=== PATIENT | male | born 1945 | race Caucasian/White ===

== ENCOUNTER 2017-06-06 22:19 | Inpatient (IN) | payer MEDICARE, MEDICAID ==
[~2017-06-06] VITALS: Ht 193 cm; Wt 97.5 kg
--- NOTE | 2017-06-06 22:35 | NUR ---
PT AMBULATORY TO ER BED 8. PT BIB CG FROM [facility] FOR ABD PAIN AND INCREASED CONFUSION. PT PLACED ON SEED LABORATORY ASSISTANT. VSS/RESP EVEN UNLABORED/NAD NOTED/SKIN WARM AND DRY/DENIES N-V-D/AOX4. AWAITING MD ESTRADA.
[2017-06-06] MEDS ORDERED: LORAZEPAM INJ 2 MG/ML VIAL ONE (22:45)
--- NOTE | 2017-06-06 22:50 | NUR ---
18G IV TO L WRIST X 1 ATTEMPT USING ASEPTIC TECH, BLOOD HANDED OVER TO LAB AT THE BEDSIDE. IV FLUSHES EASILY WITH NS.
[2017-06-06] MEDS ORDERED: CLONIDINE HCL 0.1 MG TABLET PO ONE (23:00)
[2017-06-06] MEDS ORDERED: IV NS 0.9% 500 ML BAG IV ONE (23:00)
[2017-06-06] MEDS ORDERED: SERTRALINE HCL 25 MG TABLET PO SCH (23:00)
[2017-06-06] MEDS ORDERED: LORAZEPAM INJ 2 MG/ML VIAL IVP ONE (23:00)
[2017-06-06 23:04] LABS: BASOPHILS # (AUTO) 0.1 /CMM (0.0-0.2); BASOPHILS % (AUTO) 0.4 % (0.0-2.0); EOSINOPHILS # (AUTO) 0.3 /CMM (0.0-0.7); EOSINOPHILS % (AUTO) 2.1 % (0.0-6.0); HEMATOCRIT 41 % (39-51); HEMOGLOBIN 13.6 g/dL (13.5-17.5); LYMPHOCYTES # (AUTO) 0.9 /CMM (0.8-4.8); LYMPHOCYTES % (AUTO) 7.4 % (20.0-44.0); MEAN CORPUSCULAR HEMOGLOBIN 30 PG (26.0-33.0); MEAN CORPUSCULAR HGB CONC 33 g/dl (31.0-36.0); MEAN CORPUSCULAR VOLUME 91 fL (80-96); MONOCYTES # (AUTO) 0.9 /CMM (0.1-1.30); MONOCYTES % (AUTO) 7.6 % (2.0-12.0); NEUTROPHILS # (AUTO) 9.9 /CMM (1.8-8.9); NEUTROPHILS % (AUTO) 82.5 % (43.0-81.0); PLATELET COUNT (AUTO) 167 /CMM (150-450); RDW COEFFICIENT OF VARIATION 13.6 (11.5-15.0); RED BLOOD CELL COUNT(AUTO) 4.53 MIL/uL (4.5-6.0)
[2017-06-06] MEDS ORDERED: CLONIDINE HCL 0.1 MG TABLET ONE (23:04)
[2017-06-06] MEDS ORDERED: SERTRALINE HCL 25 MG TABLET ONE (23:19)
[2017-06-06 23:20] LABS: ALANINE AMINOTRANSFERASE 28 U/L (12-78); ALBUMIN 3.9 g/dL (3.4-5.0); ALKALINE PHOSPHATASE 86 U/L (46-116); ASPARTATE AMINOTRANSFERASE 33 U/L (15-37); BILIRUBIN,DIRECT 0.1 mg/dL (0.0-0.2); BILIRUBIN,TOTAL 0.5 mg/dL (0.2-1.0); CALCIUM, SERUM 8.3 mg/dL (8.5-10.1); CARBON DIOXIDE 33 mmol/L (21-32); CHLORIDE 100 mmol/L (98-107); CREATININE 0.7 mg/dL (0.6-1.3); GLUCOSE 150 mg/dL (74-106); POTASSIUM 3.2 mmol/L (3.5-5.1); SODIUM SERUM 140 mmol/L (136-145); TOTAL PROTEIN, SERUM 7.3 g/dL (6.4-8.2); UREA NITROGEN, BLOOD 14 mg/dL (7-18)
[2017-06-06 23:21] LABS: ACETAMINOPHEN 0 ug/ml (10-30); ALCOHOL, BLOOD < 3 mg/dL (0-0)
[2017-06-06] MEDS ORDERED: POTASSIUM CHLORIDE 20 MEQ TAB.PRT.SR PO ONE (23:59)
[2017-06-07] MEDS ORDERED: POTASSIUM CHLORIDE 20 MEQ TAB.PRT.SR PO ONE
--- NOTE | 2017-06-07 00:03 | NUR ---
MEDICATED PER MD ORDERS. PT RESTING QUIETLY. VSS.
--- NOTE | 2017-06-07 00:21 | NUR ---
CALLED ART FOR PSYCH EVAL.
--- NOTE | 2017-06-07 01:29 | NUR ---
PT AWAKE, SITTING UP IN BED. VSS/RESP EVEN UNLABORED.
--- NOTE | 2017-06-07 01:59 | NUR ---
haritha 215-b
--- NOTE | 2017-06-07 02:35 | NUR ---
REPORT GIVEN TO EDUARDO LIEBERMAN FOR VAUGHN.
--- NOTE | 2017-06-07 04:30 | NUR ---
NO CHANGES, AWAITNG BED. PT RESTING QUIETLY, VSS/RESP EVEN UNLABORED.
--- NOTE | 2017-06-07 06:23 | NUR ---
PT TRANSPORTED VIA STRETCHER TO [facility] BED 215-2 WITH EMT. BELÉNS.
[2017-06-07] MEDS ORDERED: TEMAZEPAM 7.5 MG CAPSULE PO PRN (07:00)
[2017-06-07] MEDS ORDERED: MAG HYDROX/AL HYDROX/SIMETH 30 ML UDC PO PRN (07:00)
[2017-06-07] MEDS ORDERED: MAGNESIUM HYDROXIDE 30 ML UDC PO PRN (07:00)
--- NOTE | 2017-06-07 07:30 | NUR ---
GPS/RN RECEIVED PT TO CONTINUE WITH ADMISSION. PT. ADMITTING ORDERS RECEIVED BY RUSH SEATER AND CARRIED OUT. NO SI OR HI NOTED NO ACUTE DISTRESS.VSS. MEDS RECKONER CALLED TO PUT THE MEDS IN.
[2017-06-07 08:00] VITALS: BP 137/80
[2017-06-07] MEDS: LORAZEPAM 0.5 MG TABLET PO PRN (09:18)
[2017-06-07] MEDS ORDERED: TRAZ-144 PO (09:52)
[2017-06-07] MEDS ORDERED: ISOS60TA4 PO (09:52)
[2017-06-07] MEDS ORDERED: ATOR20TA PO (09:52)
[2017-06-07] MEDS ORDERED: SERT100T PO (09:52)
[2017-06-07] MEDS ORDERED: METO100T14 PO (09:52)
[2017-06-07] MEDS ORDERED: DIVA250T PO (09:52)
[2017-06-07] MEDS ORDERED: ARIP5TAB10 PO (09:52)
[2017-06-07] MEDS ORDERED: CARB200T8 PO (09:52)
--- NOTE | 2017-06-07 10:00 | NUR ---
GPS/RN PT REFUSED FULL SKIN ASSESSMENT.
--- NOTE | 2017-06-07 10:30 | NUR ---
GPS/RN PT SEEN BY DR LYNCH WHO WILL RECONCILE THE MEDS
[2017-06-07 16:00] VITALS: BP 132/81
--- NOTE | 2017-06-07 17:55 | NUR ---
GPS/RN DR GRESHAM CONTRACTED WITH THE [employer]IND[employer] TO RECONCILE THE MEDS. IS WORKING ON IT. Addendum: 06/07/17 at 1829 by CHERRY GONZALEZ RN NOT CONTRACTED BUT CONTACTED
[2017-06-07 19:58] VITALS: BP 154/90
[2017-06-07] MEDS ORDERED: CARBAMAZEPINE 100 MG TAB.CHEW PO SCH (21:00)
[2017-06-07] MEDS: ARIPIPRAZOLE 5 MG TABLET PO SCH (21:33)
[2017-06-07] MEDS: SIMVASTATIN 40 MG TABLET PO SCH (21:33)
[2017-06-07] MEDS: METOPROLOL TARTRATE 50 MG TABLET PO SCH (21:35)
[2017-06-07] MEDS ORDERED: CARBAMAZEPINE 100 MG TAB.CHEW ONE (22:50)
[2017-06-08] MEDS: ACETAMINOPHEN 325 MG TABLET PO PRN ×2 (06:51→15:09)
[2017-06-08 07:26] LABS: BASOPHILS # (AUTO) 0.1 /CMM (0.0-0.2); BASOPHILS % (AUTO) 1.1 % (0.0-2.0); EOSINOPHILS # (AUTO) 0.6 /CMM (0.0-0.7); EOSINOPHILS % (AUTO) 8.5 % (0.0-6.0); HEMATOCRIT 40 % (39-51); HEMOGLOBIN 13.7 g/dL (13.5-17.5); LYMPHOCYTES # (AUTO) 1.2 /CMM (0.8-4.8); LYMPHOCYTES % (AUTO) 16.9 % (20.0-44.0); MEAN CORPUSCULAR HEMOGLOBIN 30 PG (26.0-33.0); MEAN CORPUSCULAR HGB CONC 34 g/dl (31.0-36.0); MEAN CORPUSCULAR VOLUME 89 fL (80-96); MONOCYTES # (AUTO) 0.7 /CMM (0.1-1.30); MONOCYTES % (AUTO) 10.4 % (2.0-12.0); NEUTROPHILS # (AUTO) 4.5 /CMM (1.8-8.9); NEUTROPHILS % (AUTO) 63.1 % (43.0-81.0); PLATELET COUNT (AUTO) 153 /CMM (150-450); RDW COEFFICIENT OF VARIATION 13.7 (11.5-15.0); WHITE BLOOD COUNT (AUTO) 7.1 K/uL (4.3-11.0)
[2017-06-08 08:00] VITALS: BP 152/76
[2017-06-08 08:08] LABS: THYROID STIMULATING HORMONE 2.308 uIU/mL (0.358-3.74)
[2017-06-08 08:09] LABS: CALCIUM, SERUM 8.1 mg/dL (8.5-10.1); CARBON DIOXIDE 26 mmol/L (21-32); CHLORIDE 104 mmol/L (98-107); GLUCOSE 94 mg/dL (74-106); POTASSIUM 3.6 mmol/L (3.5-5.1); SODIUM SERUM 141 mmol/L (136-145)
[2017-06-08 08:10] LABS: ALANINE AMINOTRANSFERASE 29 U/L (12-78); ALBUMIN 3.3 g/dL (3.4-5.0); ALKALINE PHOSPHATASE 75 U/L (46-116); ASPARTATE AMINOTRANSFERASE 27 U/L (15-37); BILIRUBIN,TOTAL 0.3 mg/dL (0.2-1.0); CREATININE 0.6 mg/dL (0.6-1.3); MAGNESIUM 1.7 mg/dL (1.8-2.4); PHOSPHORUS 2.8 mg/dL (2.5-4.9); TOTAL PROTEIN, SERUM 6.7 g/dL (6.4-8.2); UREA NITROGEN, BLOOD 11 mg/dL (7-18)
[2017-06-08] MEDS: ARIPIPRAZOLE 5 MG TABLET PO SCH ×2 (08:26→21:18)
[2017-06-08] MEDS: METOPROLOL TARTRATE 50 MG TABLET PO SCH ×2 (08:26→21:20)
[2017-06-08] MEDS: ISOSORBIDE MONONITRATE (30MG) 30 MG TAB.SR.24H PO SCH (08:27)
[2017-06-08] MEDS: CARBAMAZEPINE 200 MG TABLET PO SCH ×2 (09:41→21:19)
--- NOTE | 2017-06-08 09:44 | NUR ---
[id number]-[id number]: GAVE MILK OF MAGNESIA 30 ML DUE TO CONSTIPATION UPON PT REQUEST AND WILL CONTINUE TO MONITOR FOR EFFECTIVENESS OF MEDICATION.
[2017-06-08] MEDS ORDERED: CARBAMAZEPINE 200 MG TABLET PO SCH (10:00)
[2017-06-08] MEDS: LORAZEPAM 0.5 MG TABLET PO PRN (10:24)
--- NOTE | 2017-06-08 10:24 | NUR ---
QMF-VN-[id number]: GAVE ATIVAN 0.5 MG PO DUE TO SEVERE ANXIETY UPON PT REQUEST AND WILL CONTINUE TO MONITOR FOR EFFECTIVENESS OF MEDICATION
[2017-06-08] MEDS ORDERED: MAGNESIUM OXIDE 400 MG TABLET PO ONE (12:00)
--- NOTE | 2017-06-08 12:05 | NUR ---
YRN-SP-[id number]: GAVE MAG-OXIDE 800 MG PO DUE TO MAGNESIUM IS 1.7.
--- NOTE | 2017-06-08 15:09 | NUR ---
XBE-JQ-[id number]: GAVE TYLENOL 650 MG DUE TO 5/10 GENERALIZED PAIN UPON PT REQUEST AND WILL CONTINUE TO MONITOR FOR EFFECTIVENESS OF MEDICATION
[2017-06-08] MEDS ORDERED: LORAZEPAM 1 MG TABLET PO STA (15:29)
[2017-06-08] MEDS: LORAZEPAM 1 MG TABLET PO PRN ×3 (15:35→23:27)
--- NOTE | 2017-06-08 15:38 | NUR ---
NKT-QP-EZJSL: GAVE ATIVAN 1 MG PO DUE TO SEVERE ANXIETY UPON PT REQUEST AND WILL CONTINUE TO MONITOR FOR EFFECTIVENESS OF MEDICATION
[2017-06-08 16:15] VITALS: BP 152/75
--- NOTE | 2017-06-08 18:15 | NUR ---
VNB-PX-QUTUR: GAVE ATIVAN 1 MG PO DUE TO SEVERE ANXIETY UPON PT REQUEST AND WILL CONTINUE TO MONITOR FOR EFFECTIVENESS OF MEDICATION
[2017-06-08 19:59] VITALS: BP 160/90
[2017-06-08] MEDS: SIMVASTATIN 40 MG TABLET PO SCH (21:18)
[2017-06-09] MEDS ORDERED: IBUPROFEN 600 MG TABLET PO ONE (01:12)
[2017-06-09] MEDS: IBUPROFEN 600 MG TABLET PO PRN ×2 (01:15→11:08)
--- NOTE | 2017-06-09 01:20 | NUR ---
GPS RN: PATIENT'S BLOOD PRESSURE HAS BEEN TRENDING HIGH. 192/114, HR-60 AT THE MOMENT. PATIENT WAS GIVEN METOPROLOL 100MG AT 2120, SINCE BP WAS 180/79, HR-68. ATIVAN 1MG PO GIVEN @2327 BP DURING THIS TIME 177/98, HR-56. RELAYED THE WHOLE SITUATION TO DR. VALENCIA, WITH ORDERS TO GIVE LISINOPRIL 40 MG PO NOW, AND GIVEN IBUPROFEN 600MG PO PRN. ALL THESE TWO MEDICATIONS PULLED OUT BY RING MAKERNAYELI FROM [facility] AN OVERRIDE. WILL CONTINUE TO MONITOR PATIENT.
[2017-06-09] MEDS ORDERED: LISINOPRIL (20MG) 20 MG TABLET PO ONE (01:30)
[2017-06-09] MEDS: LORAZEPAM 1 MG TABLET PO PRN ×2 (05:04→09:46)
--- NOTE | 2017-06-09 05:24 | NUR ---
GPS RN: UPDATED DR. VALENCIA OF PATIENT'S BLOOD PRESSURE. LEFT ARM- 200/79, HR- 61 RIGHT ARM- 159/94, HR-56 LEFT ARM- 192/108, HR-54 DR. VALENCIA GAVE ORDERS FOR CLONIDINE 0.1MG Q4HRS FOR BP >160MMHG. ORDER NOTED AND CARRIED OUT. WILL CONTINUE TO MONITOR. WILL ENDORSE TO DAY SHIFT NURSE.
[2017-06-09] MEDS ORDERED: CLONIDINE HCL 0.1 MG TABLET ONE (05:28)
[2017-06-09] MEDS: CLONIDINE HCL 0.1 MG TABLET PO PRN ×2 (05:33→13:59)
[2017-06-09 08:00] VITALS: BP 156/90
[2017-06-09] MEDS: ARIPIPRAZOLE 5 MG TABLET PO SCH (08:06)
[2017-06-09] MEDS: ISOSORBIDE MONONITRATE (30MG) 30 MG TAB.SR.24H PO SCH (08:07)
[2017-06-09] MEDS: CARBAMAZEPINE 200 MG TABLET PO SCH (08:08)
[2017-06-09] MEDS: METOPROLOL TARTRATE 50 MG TABLET PO SCH (08:08)
--- NOTE | 2017-06-09 09:46 | NUR ---
[id number]-ZF-[id number]: GAVE ATIVAN 1 MG PO DUE TO SEVERE ANXIETY UPON PT REQUEST AND WILL CONTINUE TO MONITOR FOR EFFECTIVENESS OF MEDICATION
[2017-06-09 09:59] LABS: CALCIUM, SERUM 8.3 mg/dL (8.5-10.1); CARBON DIOXIDE 27 mmol/L (21-32); CHLORIDE 106 mmol/L (98-107); CREATININE 0.7 mg/dL (0.6-1.3); GLUCOSE 117 mg/dL (74-106); MAGNESIUM 1.8 mg/dL (1.8-2.4); POTASSIUM 3.7 mmol/L (3.5-5.1); SODIUM SERUM 142 mmol/L (136-145); UREA NITROGEN, BLOOD 17 mg/dL (7-18)
--- NOTE | 2017-06-09 11:08 | NUR ---
OQP-HH-YCRQG: GAVE MOTRIN 600 MG PO DUE TO GENERALIZED PAIN UPON PT REQUEST AND WILL CONTINUE TO MONITOR FOR EFFECTIVENESS OF MEDICATION
--- NOTE | 2017-06-09 11:33 | NUR ---
Initial Discharge Note: It is noted in patient's chart that he came from a "facility." Patient states that it was a board and care, but does not have any information on it. There is no information listed in patient's charts or notes. Patient informed SW that his previous facility was trying to provide placement at [facility]. Patient provided SW with business care. SW to follow up and facilitate safe and proper discharge.
--- NOTE | 2017-06-09 11:34 | NUR ---
Discharge Planning: CARLY contacted [address] [place] [address], / fax#[phone]. CARLY was redirected to Vandana luna at [phone]. Vandana stated that patient has been assessed yesterday evening by her and that he was accepted into the facility. Vandana asked that CARLY fax an inquiry for patient to the above fax number. CARLY stated that she will do so and asked Vandana for information about patient's previous place of residence. Vandana stated that she was not in her office, but that she will call CARLY with that information once she is able to do so. SW to fax facility and to follow up.
--- NOTE | 2017-06-09 11:39 | NUR ---
Discharge Planning: CARLY faxed inquiry to [address] [place] [address], / fax#[phone]
--- NOTE | 2017-06-09 11:47 | NUR ---
WHR-PY-[id number]: GAVE MAALOX 30 ML PO DUE TO INDIGESTION UPON PT REQUEST AND WILL CONTINUE TO MONITOR FOR EFFECTIVENESS OF MEDICATION
[2017-06-09 13:59] VITALS: BP 171/86
--- NOTE | 2017-06-09 13:59 | NUR ---
GGZ-ZM-[id number]: NOTIFIED DR. ALEJANDRA ABOUT INCREASED BLOOD PRESSURE OF 171/86 AND PULSE IS 85 AND GAVE CATAPRESS 0.1 MG PO AND WILL CONTINUE TO MONITOR FOR EFFECTIVENESS OF MEDICATION. DR. ALEJANDRA WILL REVIEW BLOOD PRESSURE MEDICATIONS TO ADJUST BLOOD PRESSURE MEDICATIONS. Addendum: 06/09/17 at 1503 by PURVI ALVARES RN PT ALSO COMPLAINED OF CHEST PAIN AND NOTIFIED DR. ALEJANDRA. PT IS ALERT AND ORIENTED X3.
[2017-06-09] MEDS ORDERED: ASPIRIN 325 MG TABLET PO STA (14:35)
[2017-06-09] MEDS ORDERED: AMLO5TAB2 PO (14:43)
[2017-06-09] MEDS ORDERED: ASPI-1169 PO (14:43)
[2017-06-09] MEDS ORDERED: CARB200T39 PO (14:49)
[2017-06-09] MEDS ORDERED: ARIP5TAB10 PO (14:49)
--- NOTE | 2017-06-09 14:51 | NUR ---
BSL-YT-WYZGT: BLOOD PRESSURE IS 153/104 AND PULSE IS [address] ALEJANDRA ABOUT NEW BLOOD PRESSURE READINGS AND NOTIFIED [facility] TO TRANSFER PT TO MEDICAL SURGICAL FLOOR PER DR. ALEJANDRA ORDER. [facility] UNABLE TO PROVIDE BED IN SURGICAL MEDICAL FLOOR DUE TO NOT HAVING AVAILABLE SITTER AT THIS TIME. MONITOR PT.
[2017-06-09 14:55] VITALS: BP 153/104
--- NOTE | 2017-06-09 15:13 | NUR ---
VRP-XI-ATAZY: NOTIFIED DR. ALEJANDRA ABOUT EKG RESULTS: SINUS RHYTHM= NORMAL P AXIS, V-RATE 50-99, ABNORMAL R-WAVE PROGRESSION, EARLY TRANSITION= QRS AREA > 0 IN V2. AND BLOOD PRESSURE IS 108/106. DR. ESPARZA WANTS TO CONTIUE TO MONITOR PT.
[2017-06-09] MEDS ORDERED: OLANZAPINE 10 MG TABLET PO STA (15:23)
[2017-06-09] MEDS ORDERED: LORAZEPAM 1 MG TABLET PO STA (15:24)
--- NOTE | 2017-06-09 15:29 | NUR ---
TCZ-PJ-ADPOE: PT IS ANXIOUS, RESTLESS, UNPREDICTABLE, EASILY IRRITABLE, NON-COMPLAINT WITH STAFF. DR. SEGURA WAS IN UNIT AND ORDERED ZYPREXA 10 MG PO AND ATIVAN 2 MG IM AND WILL CONTINUE TO MONITOR FOR EFFECTIVENESS OF MEDICATION
[2017-06-09 16:00] VITALS: BP 168/106
--- NOTE | 2017-06-09 16:35 | NUR ---
CGG-BX-[id number]: NOTIFIED TO PHARMACY THAT WASTE RECORD ON [facility] MEDICATION MACHINE IS STATING 4 MG OF ATIVAN TO BE WASTED WHEN ASSOCIATE PROFESSOR ONLY TOOK ONE MG OF ATIVAN. PLACED NOT INACCURATE NUMBER OF MG OF ATIVAN.
--- NOTE | 2017-06-09 17:40 | NUR ---
[id number]-AQ-[id number]: PT IS 71 YEARS OLD MALE DISCHARGE TO MEDICAL SURGICAL FLOOR DUE TO INCREASED BLOOD PRESSURE. PT IS COMPLAINT WITH MEDICATIONS AND TREATMENTS. PT DENIES SI/HI/AVH. PT REFUSED TO SIGN DISCHARGE PAPERWORK. PT REFUSED SKIN ASSESSMENT. RECONCILED WITH DR. ALEJANDRA. AND DR. SEGURA. RETURNED AND DOCUMENTED. ESCORTED PT TO THE MEDICAL SURGICAL FLOOR. EXPLAINED DISCHARGE PAPERWORK TO PT AND PT VERBALIZED UNDERSTANDING EVIDENCED BY STATING, "I UNDERSTAND."
[2017-06-09] MEDS ORDERED: OLANZAPINE 5 MG/TAB.RAPDIS PO SCH (21:00)
[2017-06-10] MEDS ORDERED: AMLODIPINE BESYLATE 5 MG TABLET PO SCH (09:00)
== END 2017-06-09 17:40 | DRG 885 ==
LOC: ER 22:26 → GPS 06-07 02:37
PROVIDERS: ADMIT Psychiatry & Neurology Psychiatry; ATTEND Psychiatry & Neurology Psychiatry
DX: F25.0 Schizoaffective disorder, bipolar type (principal); F03.91 Unspecified dementia, unspecified severity, with behavioral disturbance; E86.0 Dehydration; D72.829 Elevated white blood cell count, unspecified; E78.5 Hyperlipidemia, unspecified; F41.9 Anxiety disorder, unspecified; E87.6 Hypokalemia; Z79.899 Other long term (current) drug therapy; Z79.82 Long term (current) use of aspirin; F43.9 Reaction to severe stress, unspecified; I10 Essential (primary) hypertension; F29 Unspecified psychosis not due to a substance or known physiological condition; R73.9 Hyperglycemia, unspecified; R10.9 Unspecified abdominal pain; R07.9 Chest pain, unspecified; K59.00 Constipation, unspecified
CPT/HCPCS: 36415; 71045-TC; 74022-TC; 80048-TC; 80053-TC; 80061-TC; 80076-TC; 80156-TC; 82140-TC; 83735-TC; 84100-TC; 84443-TC; 85025-TC; 87081-TC; A4606; G0480; J2060; J7040; Z7610

== ENCOUNTER 2017-06-09 17:40 | Inpatient (IN) | payer MEDICARE, MEDICAID ==
[~2017-06-09] VITALS: Ht 193 cm; Wt 95.8 kg
[~2017-06-09 17:40] MED LIST: AMLO5TAB2 PO; ARIP5TAB10 PO; ASPI-1169 PO; ATOR20TA PO; CARB200T39 PO; CARB200T8 PO; DIVA250T PO; ISOS60TA4 PO; METO100T14 PO; SERT100T PO; TRAZ-144 PO
--- NOTE | 2017-06-09 18:25 | NUR ---
RN NOTES PT WAS BROUGHT UP FROM GPS. PT IS ALERT AND ORIENTED X 2-3. VITAL SIGNS ARE 159/89, P 69, R 18, O2 94%, T 98.0. IV INSERTED INTO LFA #22, SL. TELE MONITOR PLACED ON PT, SINUS KARLA 58. PT WAS GIVEN DINNER. PT REFUSING SKIN ASSESSMENT. SAFETY MEASURES ARE IN PLACE, CALL LIGHT IS IN REACH AND SITTER IS IN THE ROOM. WILL ENDORSE TO EXTENSION COURSE COUNSELOR RN FOR CONTINUITY OF CARE.
[2017-06-09 19:00] VITALS: BP 189/113
--- NOTE | 2017-06-09 19:15 | NUR ---
MS STEVAN INITIAL NOTES RECEIVED REPORT FROM AM NURSE HYACINTH. PT SEEN IN BED AWAKE AND ALERT BUT CALMED AND QUIET AT THIS TIME. NO SIGNS OF ANY AGITATION NOTED. DX OF CHEST PAIN, HYPERTENSION. PT BLOOD PRESSURE HIGH AT THIS TIS TIME BUT DENIES ANY CHEST PAIN. AND HE STATED HE'S HUNGRY . RE-ORIENTED WHERE HE AT AND HOW TO USED THE CALL LIGHT SYSTEM. SITTER AT THE BEDSIDE FOR SAFETY. TELE SR PER MONITOR. WILL CONTINUE MONITORING. CALL TALENT ASSOCIATE MD TO GET ADMISSION ORDERS AND BLOOD PRESSURE MEDICATION. WILL CONTINUE MONITORING.
--- NOTE | 2017-06-09 19:21 | NUR ---
CURING PRESS MAINTAINER/INITIAL NOTES CHECKED PT HE'S AWAKE AND ALERT CALMED AT THIS TIME WITH VITAL SINGS FF. BP 189/113. PULSE 84, RESP 18 O2 SAT 98 AND TEMP 98.2 DENIES ANY CHEST PAIN OR ANY DISCOMFORT. TELE SR 67 PER MONITOR. KEPT HIM SAFE AND COMFORTABLE AT ALL TIMES. PT STILL ON 14 DAY HOLD. SITTER AT THE BEDSIDE.
[2017-06-09] MEDS ORDERED: ONDANSETRON HCL/PF 4 MG/2 ML VIAL IVP PRN (20:00)
[2017-06-09] MEDS ORDERED: DIVALPROEX SODIUM 125 MG TABLET.DR PO SCH (20:00)
[2017-06-09] MEDS: hydrALAZINE HCL 50 MG TABLET PO PRN (20:12)
--- NOTE | 2017-06-09 20:12 | NUR ---
NET LEAD DEVELOPER./NOTES HYDRALAZINE 50MG PO GIVEN PRN ORDERED. DINNER ALSO SERVED. WILL CONTINUE TO MONITOR.
[2017-06-09] MEDS ORDERED: LORAZEPAM 1 MG TABLET PO PRN (20:30)
[2017-06-09] MEDS: METOPROLOL TARTRATE 50 MG TABLET PO SCH (21:12)
[2017-06-09] MEDS: ATORVASTATIN 10 MG TABLET PO SCH (21:12)
[2017-06-09] MEDS: ISOSORBIDE MONONITRATE 20 MG TABLET PO SCH (21:12)
[2017-06-09] MEDS: TEMAZEPAM 7.5 MG CAPSULE PO PRN (21:13)
[2017-06-09 21:15] VITALS: BP 149/83
--- NOTE | 2017-06-09 21:15 | NUR ---
PRESS CLEANER./NOTES RE-CHECKED BLOOD PRESSURE AFTER HYDRALAZINE GIVEN AND CAME OUT SBP 149/83 AND PULSE 78. SOME OF ROUTINE MEDS GIVEN AND RESTORIL ALSO GIVEN PER REQUESTED AND ORDERED. SAFETY PRECAUTION IMPLEMENTED AND OBSERVED. SITTER AT THE BEDSIDE FOR SAFETY. PT STATED "THANK YOU". WILL CONTINUE MONITORING.
--- NOTE | 2017-06-09 22:47 | NUR ---
Patient was combative while performing echo study at around 10pm. Was not able to take sufficient images as patient uncooperative.
[2017-06-09] MEDS: ACETAMINOPHEN 325 MG TABLET PO PRN (23:34)
--- NOTE | 2017-06-10 01:55 | NUR ---
MS ENVIRONMENTAL RESEARCH PROJECT MANAGER NOTES PT WOKE UP UPSET AND AGITATED ,COMPLAINING OF TERRIBLE HEADACHE. SPOKE TO HIM TO CALMED DOWN TOLD HIM THAT I ALREADY GIVEN HIS PAIN MEDS AND SLEEP MEDICATION . HE STARTED TALKING TO LOUD AND SAYING "ITS BETTER IN THE STREET I CAN GET ANY MEDICATION THAT I WANT. I SPOKE TO HIM THAT NEEDS TO CALL HIS DOCTOR BUT NEEDS TO TAKE HIS BLOOD PRESSURE AGAIN , HE REFUSED IT AND SAYING I ALWAYS HAVE HIGH BLOOD PRESSURE. NO SIGNS OF ANY ACUTE DISTRESS AND NO SIGNS OF ANY STROKE NOTED, ABLE TO AMBULATE ON STEADY GAIT.
[2017-06-10] MEDS ORDERED: MORPHINE SULFATE INJ 4 MG/ML DISP.SYRIN ONE ×2 (02:00→06:19)
[2017-06-10] MEDS ORDERED: MORPHINE SULFATE INJ 4 MG/ML DISP.SYRIN IV PRN ×2 (02:00)
--- NOTE | 2017-06-10 02:15 | NUR ---
MS STEVAN NOTES MORPHINE 2 MG GIVEN SHARRON IVP ORDERED. PT BACK TO BED FOR HIS SAFETY. SITTER AT THE BEDSIDE.
--- NOTE | 2017-06-10 03:28 | NUR ---
CASTING HOUSE LABORER/NOTES PT CAME OUT TO HIS ROOM AND STARTED TALKING TO LOUD AND SAYING "HE NEEDS MORE PAIN MEDS "IS NOT ENOUGH THE PAIN MED THAT WE GAVE IT AND HE ALSO SAYING THAT HE'S AN ADDICT HE NEEDS MORE STRONG PAIN MEDICATION LIKE OPIUM . TRYING TO TALKED TO HIM TO CALMED HIM DOWN AND SAYING I WILL CALL HIS MD AGAIN , BUT HE'S NOT LISTENING AND SAYING I NEED IT NOW SO WE DECIDED TO CALL THE SECURITY TO HELPED US TO CALM HIM DOWN AND FOR HIS AND OUR SAFETY WELL. CALLED HIS TAXATION ACCOUNTANT MD.
[2017-06-10] MEDS ORDERED: LORAZEPAM INJ 2 MG/ML VIAL ONE (03:39)
[2017-06-10] MEDS: LORAZEPAM INJ 2 MG/ML VIAL IV PRN ×4 (03:45→17:33)
--- NOTE | 2017-06-10 03:45 | NUR ---
TIER AND DETONATOR/NOTES AFTER SPOKE TO OVEN LABORER MD , ATIVAN 1 MG GIVEN SHARRON IVP ORDERED. NO SIGNS OF ANY ACUTE DISTRESS . SAFETY PRECAUTION IMPLEMENTED AND OBSERVED. WILL CONTINUE TO MONITOR. SITTER AT THE BEDSIDE.
[2017-06-10] MEDS ORDERED: MORPHINE SULFATE INJ 2 MG/ML DISP.SYRIN SQ PRN (04:00)
[2017-06-10 05:08] VITALS: BP 145/84
[2017-06-10] MEDS: ACETAMINOPHEN 325 MG TABLET PO PRN (05:44)
--- NOTE | 2017-06-10 07:00 | NUR ---
MS STORAGE BATTERY CHARGER CLOSING NOTE PT RESTING IN HIS BED CALMED AT THIS TIME, NO SIGNS OF ANY ACUTE DISTRESS NOTED. ALL DUE MEDS GIVEN AND ALL NEEDS MET. KEPT HIM WARM AND COMFORTABLE AT ALL TIMES. WILL ENDORSE TO AM NURSE FOR CONTINUITY OF CARE. SITTER AT THE BEDSIDE FOR SAFETY.
--- NOTE | 2017-06-10 07:10 | NUR ---
RN OPENING NOTES RECEIVED PT. PT IS STABLE AND RESTING IN BED. A/OX4. NO S/S OF RESPIRATORY DISTRESS OR SOB. PT C/O PAIN 8/10 IN HEAD AND A HEADACHE. PT ON MANDATORY 14-DAY HOLD WHICH IS TO ON 06/23. IV ACCESS LOCATED ON LEFT WRIST 20G HL. SAFETY MEASURES IN PLACE. CALL LIGHT WITHIN REACH. WILL CONTINUE TO MONITOR.
[2017-06-10 08:04] LABS: BASOPHILS # (AUTO) 0.1 /CMM (0.0-0.2); BASOPHILS % (AUTO) 0.9 % (0.0-2.0); EOSINOPHILS # (AUTO) 0.7 /CMM (0.0-0.7); EOSINOPHILS % (AUTO) 9.4 % (0.0-6.0); HEMATOCRIT 41 % (39-51); HEMOGLOBIN 13.7 g/dL (13.5-17.5); LYMPHOCYTES # (AUTO) 1.4 /CMM (0.8-4.8); LYMPHOCYTES % (AUTO) 17.9 % (20.0-44.0); MEAN CORPUSCULAR HEMOGLOBIN 30 PG (26.0-33.0); MEAN CORPUSCULAR HGB CONC 34 g/dl (31.0-36.0); MEAN CORPUSCULAR VOLUME 89 fL (80-96); MONOCYTES # (AUTO) 0.7 /CMM (0.1-1.30); MONOCYTES % (AUTO) 8.6 % (2.0-12.0); NEUTROPHILS # (AUTO) 4.9 /CMM (1.8-8.9); NEUTROPHILS % (AUTO) 63.2 % (43.0-81.0); PLATELET COUNT (AUTO) 223 /CMM (150-450); RDW COEFFICIENT OF VARIATION 13.8 (11.5-15.0); RED BLOOD CELL COUNT(AUTO) 4.61 MIL/uL (4.5-6.0); WHITE BLOOD COUNT (AUTO) 7.7 K/uL (4.3-11.0)
[2017-06-10 08:14] LABS: ALANINE AMINOTRANSFERASE 43 U/L (12-78); ALBUMIN 3.3 g/dL (3.4-5.0); ALKALINE PHOSPHATASE 73 U/L (46-116); ASPARTATE AMINOTRANSFERASE 41 U/L (15-37); BILIRUBIN,TOTAL 0.3 mg/dL (0.2-1.0); CALCIUM, SERUM 8.5 mg/dL (8.5-10.1); CARBON DIOXIDE 27 mmol/L (21-32); CHLORIDE 108 mmol/L (98-107); CREATININE 0.7 mg/dL (0.6-1.3); GLUCOSE 118 mg/dL (74-106); MAGNESIUM 1.8 mg/dL (1.8-2.4); PHOSPHORUS 3.2 mg/dL (2.5-4.9); POTASSIUM 3.9 mmol/L (3.5-5.1); SODIUM SERUM 145 mmol/L (136-145); TOTAL PROTEIN, SERUM 6.7 g/dL (6.4-8.2); UREA NITROGEN, BLOOD 25 mg/dL (7-18)
[2017-06-10 08:18] LABS: CHOLESTEROL 141 mg/dL (<200); HDL CHOLESTEROL 34 mg/dL (40-60); LDL 88 mg/dL (0-99); THYROID STIMULATING HORMONE 2.139 uIU/mL (0.358-3.74); TRIGLYCERIDES 125 mg/dL (30-150)
[2017-06-10] MEDS: ISOSORBIDE MONONITRATE 20 MG TABLET PO SCH (08:47)
[2017-06-10] MEDS: DIVALPROEX SODIUM 250 MG TABLET.DR PO SCH ×3 (08:47→16:27)
[2017-06-10] MEDS: CARBAMAZEPINE 200 MG TABLET PO SCH ×2 (08:48→16:26)
[2017-06-10] MEDS: TRAZODONE 50 MG TABLET PO SCH ×2 (08:48→16:26)
[2017-06-10] MEDS: METOPROLOL TARTRATE 50 MG TABLET PO SCH ×2 (08:50→20:17)
[2017-06-10] MEDS ORDERED: AMLODIPINE BESYLATE 5 MG TABLET PO SCH (09:00)
[2017-06-10] MEDS ORDERED: ASPIRIN 81 MG TAB.CHEW PO SCH (09:00)
[2017-06-10] MEDS ORDERED: SERTRALINE HCL 50 MG TABLET PO SCH ×2 (09:00)
[2017-06-10] MEDS ORDERED: TRAZODONE 50 MG TABLET PO SCH (09:00)
[2017-06-10] MEDS ORDERED: ARIPIPRAZOLE 5 MG TABLET PO SCH ×2 (09:00)
[2017-06-10] MEDS: hydrALAZINE HCL 50 MG TABLET PO SCH ×3 (09:15→16:27)
--- NOTE | 2017-06-10 11:00 | NUR ---
RN NOTES PT IS A GPS TRANSFER. MOMENTS OF ESCALATION IN MOOD, MEASURES TAKEN TO CALM AND RELAX PT. PT'S BP IS ELEVATED AT 177/110, MD AWARE AND ALL BP MEDICATION GIVEN. WILL CONTINUE TO MONITOR.
[2017-06-10] MEDS: MORPHINE SULFATE INJ 4 MG/ML DISP.SYRIN IV PRN ×3 (11:59→21:10)
[2017-06-10 16:08] VITALS: BP 177/105
--- NOTE | 2017-06-10 19:25 | NUR ---
RN CLOSING NOTES PT IN BED RESTING, SITTER AT BEDSIDE. NO S/S OF RESPIRATORY DISTRESS OR SOB. PT HAS NO C/O PAIN AT THIS TIME. PT IS ON HOLD UNTIL 06/23/17. ALL PT NEEDS ANTICIPATED AND MET. SAFETY MEASURES IN PLACE, CALL LIGHT WITHIN REACH. WILL ENDORSE TO ASTRONOMY PROFESSOR FOR VAUGHN.
--- NOTE | 2017-06-10 19:51 | NUR ---
MS CALLES INITIAL NOTES PT IN BED AT THIS TIME RESTING , RESPIRATION EVEN AND NON-LABORED, NOT IN ANY ACUTE DISTRESS NOTED. SITTER AT THE BEDSIDE FOR SAFETY. PT STILL ON 14 DAY HOLD. WILL CONTINUE CLOSELY MONITORING.
[2017-06-10] MEDS: hydrALAZINE HCL 50 MG TABLET PO PRN (20:17)
--- NOTE | 2017-06-10 20:37 | NUR ---
DATA OPERATIONS DIRECTOR/NOTES PT WOKE UP AND STANDING IN FRONT OF THE STATION AND ASKING ABOUT ALL HIS MEDICATION. SPOKE TO HIM THAT HIS MEDS DUE AT 2100. THE PT STARTED GETTING AGITATED , SCREAMING ON US AND MANIPULATIVE ASKING FOR HIS ALL MEDICATION TO GIVE IT NOW EVEN NOT ON THE SCHEDULE. HE ALSO INSISTING THAT HE HAS 9 MEDICATION TONIGHT EVEN THOUGH ME AND THE CHARGED NURSE EXPLAINED TO HIM WHAT KIND OF MEDICATION DUE AT THIS TIME. I ALSO TOLD HIM THE TIME HIS ATIVAN DUE . BLOOD PRESSURE AT THIS TIME 170/105 AND HEART RATE 69. ROUTINE MEDS GIVEN WELL HIS PRN MED FOR HIS BLOOD PRESSURE. KEPT HIM SAFE AT ALL TIMES. ENDORSE TO ANOTHER NURSE FOR CONTINUITY OF CARE. MORPHINE WILL BE ADMINISTERED BY ANOTHER NURSE ALISSA. SITTER AT THE BEDSIDE FOR SAFETY.
[2017-06-10] MEDS ORDERED: DOXYCYCLINE HYCLATE (100 MG) 100 MG TABLET PO SCH (21:00)
[2017-06-10 21:05] VITALS: BP 156/94
--- NOTE | 2017-06-10 21:16 | NUR ---
MS/RN NOTES RECEIVED REPORT FROM MOBILE ARCHITECT FOR VAUGHN, RECHECK B/PLOWERED TO 153/78,ADMINISTER MEDICATION FOR PAIN IVP MORPHINE AT 0.5ML,COMPLAINOF LEFT ELBOW AND HEADACHE, WII MONITOR.
--- NOTE | 2017-06-10 21:39 | NUR ---
ms/rn notes PATIENT INABILITY TO RELAX B/P RE CHECK 169/99, WILL MONITOR, ATIVAN 1MG IVP GIVEN WILL MONITOR.
[2017-06-10] MEDS: TEMAZEPAM 7.5 MG CAPSULE PO PRN (22:11)
[2017-06-10] MEDS: ATORVASTATIN 10 MG TABLET PO SCH (22:11)
--- NOTE | 2017-06-11 06:24 | NUR ---
325-1 MS/RN NOTES PATIENT IN BED, ABLE TO VERBALIZE NEED, AMBULATES W/ SUPERVISION, SAFTY MEASURES REMINDED, WILL ENDORSE TO AM RN FOR VAUGHN.
--- NOTE | 2017-06-11 07:30 | NUR ---
RN OPEN NOTES RECEIVED REPORT FROM INDUSTRIAL ELECTRICIAN JOURNEYMAN NURSE. PATIENT IS AWAKE IN HIS ROOM WITH A SITTER. PATIENT DEMANDING HIS MEDICATION AND COMBATIVE.
[2017-06-11] MEDS: hydrALAZINE HCL 50 MG TABLET PO SCH (07:42)
[2017-06-11] MEDS: ISOSORBIDE MONONITRATE 20 MG TABLET PO SCH (07:42)
[2017-06-11 07:43] VITALS: BP 187/110
[2017-06-11] MEDS: METOPROLOL TARTRATE 50 MG TABLET PO SCH (07:43)
--- NOTE | 2017-06-11 07:45 | NUR ---
HIGH BLOOD PRESSURE NOTED. ADMINISTERED BP MEDS. WILL REASSESS BP IN ONE HOUR
--- NOTE | 2017-06-11 08:00 | NUR ---
PATIENT COMBATIVE IN THE HALLWAY. CALLED SECURITY. AWARE
--- NOTE | 2017-06-11 08:15 | NUR ---
RECEIVED ORDER TO DISCHARGE PATIENT AND TRANSFER TO [facility]ALLORY-PSYCH UNIT FOR ADMISSION
--- NOTE | 2017-06-11 08:25 | NUR ---
PATIENT ESCORTED TO GPS WITH SECURITY.
[2017-06-11] MEDS ORDERED: ACET-868 PO (09:15)
[2017-06-11] MEDS ORDERED: ATOR10TA PO (09:15)
[2017-06-11] MEDS ORDERED: TEMA7.5C12 PO (09:15)
[2017-06-11] MEDS ORDERED: HYDR-4077 PO (09:15)
[2017-06-11] MEDS ORDERED: HYDR100T27 PO (09:15)
[2017-06-11] MEDS ORDERED: ASPI-1169 PO (09:15)
[2017-06-11] MEDS ORDERED: DOXY100C PO (09:15)
[2017-06-11] MEDS ORDERED: AMLO5TAB2 PO (09:15)
== END 2017-06-11 08:25 | DRG 205 ==
LOC: MED 17:40
PROVIDERS: ADMIT Nurse Practitioner Acute Care; ATTEND Nurse Practitioner Acute Care
DX: M94.0 Chondrocostal junction syndrome [Tietze] (principal); G93.40 Encephalopathy, unspecified; F03.90 Unspecified dementia, unspecified severity, without behavioral disturbance, psychotic disturbance, mood disturbance, and anxiety; I34.1 Nonrheumatic mitral (valve) prolapse; D72.829 Elevated white blood cell count, unspecified; F31.9 Bipolar disorder, unspecified; E78.5 Hyperlipidemia, unspecified; K59.00 Constipation, unspecified; R51 Headache; F29 Unspecified psychosis not due to a substance or known physiological condition; Z79.899 Other long term (current) drug therapy; Z79.82 Long term (current) use of aspirin; Z91.19 Patient's noncompliance with other medical treatment and regimen; I16.0 Hypertensive urgency; R07.89 Other chest pain
CPT/HCPCS: 36415; 70450-TC; 80053-TC; 80061-TC; 83735-TC; 84100-TC; 84443-TC; 84484-TC; 85025-TC; 93307-TC; 93880-TC; J2060; J2270; Z7610

== ENCOUNTER 2017-06-11 08:58 | Inpatient (IN) | payer MEDICARE, MEDICAID ==
[~2017-06-11] VITALS: Ht 190.5 cm; Wt 99.8 kg
[2017-06-11 08:00] VITALS: BP 165/89
[2017-06-11] MEDS ORDERED: HYDR100T27 PO (09:15)
[2017-06-11] MEDS ORDERED: ASPI-1169 PO (09:15)
[2017-06-11] MEDS ORDERED: ACET-868 PO (09:15)
[2017-06-11] MEDS ORDERED: TEMA7.5C12 PO (09:15)
[2017-06-11] MEDS ORDERED: HYDR-4077 PO (09:15)
[2017-06-11] MEDS ORDERED: AMLO5TAB2 PO (09:15)
[2017-06-11] MEDS ORDERED: DOXY100C PO (09:15)
[2017-06-11] MEDS ORDERED: ATOR10TA PO (09:15)
[2017-06-11 09:30] VITALS: BP 151/90
--- NOTE | 2017-06-11 09:30 | NUR ---
ADMISSION NOTES PATIENT ADMITTED FROM MED/SURGE MALE A/O X3, ANXIOUS, IRRITABLE EASILY, KEEP ASKING MEDICATION PATIENT STATE " I WILL TAKE 10 MEDICATION AND I RECEIVED ONLY 2 MEDICATION". PATIENT ADMITTED ON 5250 HOLD DX OF PSYCHOSIS NOS. V/S TAKEN BP-151/90, P-64, R-18, O2-95 ROOM AIR, T-98.O. ON FACE TO FACE ASSESSMENT PATIENT REFUSED SI/HI AT THIS TIME. SKIN CLEAR, MRSA OF NARES SWAB TAKEN. NEEDS ATTENDED AND ANTICIPATED. BELONGING AND CONTRABAND CHECKED. DR SEGURA, AND DR MERCEDES AWARE OF NEW PATIENT AND MEDICATION.
[2017-06-11] MEDS ORDERED: MAG HYDROX/AL HYDROX/SIMETH 30 ML UDC PO PRN (10:00)
[2017-06-11] MEDS ORDERED: MAGNESIUM HYDROXIDE 30 ML UDC PO PRN (10:00)
[2017-06-11] MEDS ORDERED: LORAZEPAM 0.5 MG TABLET PO PRN (10:00)
[2017-06-11] MEDS ORDERED: TEMAZEPAM 7.5 MG CAPSULE PO PRN (10:00)
--- NOTE | 2017-06-11 10:06 | NUR ---
RN NOTES ADMINISTERED ATIVAN 0.5 MG PO PRN FOR ANXIETY, PARANOIA, UNABLE TO FOLLOW DIRECTION, VS TAKEN, BP 151/90, HR 64, WILL CONTINUE TO MONITOR
--- NOTE | 2017-06-11 11:24 | NUR ---
SW attests to the accuracy of the psychosocial assessment dated on 06/09/17 at 11:18am. There have been no changes to the information presented in that psychosocial assessment. SW spoke with patient today, 06/11/17. Patient denies suicidal and homicidal ideation. Patient denies visual and auditory hallucinations. Patient's motor activity is calm. Patient's speech is slurred, but coherent. Patient has a cooperative interaction style and engages in conversation with SW. Patient's insight seems poor and memory seems impaired.
--- NOTE | 2017-06-11 12:05 | NUR ---
Discharge Planning: CARLY spoke with Vandana in admissions at [facility], [address] [place] [address] / [phone]. Yannick confirmed that patient has been accepted into their facility. Vandana stated patient came from [email or web address] [address] [place] [address]. Vandana stated that she does not have a contact number for them. CARLY attempted to find a contact number, but was unsuccessful. CARLY informed patient that he will be going to [facility] and patient seemed agreeable. Patient's psychiatrist set the discharge for tomorrow, 06/12/17. CARLY confirmed this with the facility.
[2017-06-11] MEDS: SERTRALINE HCL 50 MG TABLET PO SCH ×2 (13:57→14:06)
[2017-06-11] MEDS: OLANZAPINE 10 MG TABLET PO SCH ×2 (14:06→21:28)
[2017-06-11] MEDS: DIVALPROEX SODIUM 250 MG TABLET.DR PO SCH ×2 (14:06→21:29)
[2017-06-11] MEDS: ACETAMINOPHEN 325 MG TABLET PO PRN (14:48)
--- NOTE | 2017-06-11 14:56 | NUR ---
NURSING NOTE ADMINISTERED TYLENOL 650 MG FOR HEADACHE PER PT REQUEST
[2017-06-11] MEDS: LORAZEPAM 0.5 MG TABLET PO PRN ×2 (15:20→22:58)
--- NOTE | 2017-06-11 15:22 | NUR ---
NURSING NOTE ADMINISTERED ATIVAN 1 MG FOR ANXIETY PER PT REQUEST, VS STABLE, BP 145/85, HR 85. WILL CONTINUE TO MONITOR FOR SAFETY
[2017-06-11 16:00] VITALS: BP 144/93
[2017-06-11] MEDS ORDERED: ACETAMINOPHEN 325 MG TABLET PO PRN (16:00)
[2017-06-11] MEDS ORDERED: hydrALAZINE HCL 50 MG TABLET PO PRN (16:00)
[2017-06-11] MEDS: hydrALAZINE HCL 50 MG TABLET PO SCH (16:47)
[2017-06-11] MEDS: CARBAMAZEPINE 200 MG TABLET PO SCH (17:57)
[2017-06-11 20:00] VITALS: BP 142/104
[2017-06-11] MEDS ORDERED: METOPROLOL TARTRATE 25 MG TABLET PO SCH (21:00)
[2017-06-11] MEDS: METOPROLOL TARTRATE 25 MG TABLET PO SCH (21:29)
[2017-06-11] MEDS: DOXYCYCLINE HYCLATE (100 MG) 100 MG TABLET PO SCH (21:29)
[2017-06-11] MEDS ORDERED: ATORVASTATIN 10 MG TABLET PO SCH (22:00)
--- NOTE | 2017-06-11 22:38 | NUR ---
2127 temazepam 7.5 mg tab po given for insomnia.
--- NOTE | 2017-06-11 22:59 | NUR ---
225 PATIENT FEELING ANXIOUS, ATIVAN 1 MG TAB PO GIVEN.
--- NOTE | 2017-06-11 23:00 | NUR ---
PATIENT C/O HEADACHE, PREPARED TYLENOL 650 MG. PATIENT REFUSED CLAIMED THAT TYLENOL DOES NOT WORK FOR HIM BUT MORPHINE. EXPLAINED TO PATIENT THAT ONLY TYLENOL WAS PRESCRIBED BY HIS DOCTOR.
[2017-06-12 07:17] LABS: ALANINE AMINOTRANSFERASE 41 U/L (12-78); ALBUMIN 3.5 g/dL (3.4-5.0); ALKALINE PHOSPHATASE 83 U/L (46-116); ASPARTATE AMINOTRANSFERASE 32 U/L (15-37); BILIRUBIN,TOTAL 0.2 mg/dL (0.2-1.0); CALCIUM, SERUM 8.8 mg/dL (8.5-10.1); CARBON DIOXIDE 28 mmol/L (21-32); CHLORIDE 108 mmol/L (98-107); CREATININE 0.6 mg/dL (0.6-1.3); GLUCOSE 101 mg/dL (74-106); POTASSIUM 3.9 mmol/L (3.5-5.1); SODIUM SERUM 143 mmol/L (136-145); UREA NITROGEN, BLOOD 19 mg/dL (7-18)
[2017-06-12 07:54] LABS: CHOLESTEROL 156 mg/dL (<200); HDL CHOLESTEROL 37 mg/dL (40-60); LDL 94 mg/dL (0-99); TRIGLYCERIDES 129 mg/dL (30-150)
[2017-06-12 08:00] VITALS: BP 155/90
--- NOTE | 2017-06-12 08:44 | NUR ---
DR. SEGURA GAVE AN ORDER TO D/C HOLD AND D/C TO [facility] AND TO FOLLOW UP WITH PSYCH AND MEDICAL DOCTORS. PSYCHIATRIST ORDERED TO CONTINUE SAME MEDS INCLUDING PRN.
[2017-06-12] MEDS: OLANZAPINE 10 MG TABLET PO SCH (08:55)
[2017-06-12] MEDS: CARBAMAZEPINE 200 MG TABLET PO SCH ×2 (08:55→16:09)
[2017-06-12] MEDS: DOXYCYCLINE HYCLATE (100 MG) 100 MG TABLET PO SCH (08:55)
[2017-06-12] MEDS: SERTRALINE HCL 50 MG TABLET PO SCH (08:55)
[2017-06-12] MEDS: DIVALPROEX SODIUM 250 MG TABLET.DR PO SCH ×2 (08:56→12:27)
[2017-06-12] MEDS ORDERED: ISOSORBIDE MONONITRATE (30MG) 30 MG TAB.SR.24H PO SCH (09:00)
[2017-06-12] MEDS ORDERED: ASPIRIN 81 MG TAB.CHEW PO SCH (09:00)
[2017-06-12] MEDS ORDERED: AMLODIPINE BESYLATE 5 MG TABLET PO SCH (09:00)
[2017-06-12] MEDS: hydrALAZINE HCL 50 MG TABLET PO SCH ×3 (09:11→16:09)
[2017-06-12] MEDS: METOPROLOL TARTRATE 25 MG TABLET PO SCH (09:11)
--- NOTE | 2017-06-12 10:40 | NUR ---
Discharge Note: Patient to discharge to [address] [address] / [phone] via ambulance transportation arranged by social work specialist, trip #[phone]. Patient has no family to notify. Patient will be under the care of geodetic engineer Dr. Vignesh Johnson [address], [place] [address] [phone]. Patient will also be followed by psychiatrist, Dr. Segura [address] [facility] [address], [place] [address] [phone].
[2017-06-12] MEDS: LORAZEPAM 0.5 MG TABLET PO PRN (11:19)
--- NOTE | 2017-06-12 11:19 | NUR ---
RN NOTE: Patient is anxious. patient wants medications. lorazepam 1mg given.
[2017-06-12 16:00] VITALS: BP 160/97
[2017-06-12 16:09] VITALS: BP 160/97
[2017-06-12] MEDS: ACETAMINOPHEN 325 MG TABLET PO PRN (17:11)
--- NOTE | 2017-06-12 19:16 | NUR ---
DISCHARGE NOTE: PATIENT, 71 YEAR OLD MALE, DISCHARGED AT 1919 VIA GURNEY. PATIENT RECEIVED DISCHARGE ORDER FROM COLTON AND TWISTER OPERATOR DEBORA WAS MADE AWARE. PATIENT MEDICALLY STABLE UPON DISCHARGE. V/S STABLE ON DISCHARGE. PATIENT DENIED SI/HI AT THE TIME OF DISCHARGE. NO ACUTE DISTRESS NOTED. PATIENTS BELONGINGS WERE GIVEN TO PATIENT UPON DISCHARGE. REPORT GIVEN TO JOHN AT [facility]. EDUCATION AND INFORMATION WAS GIVEN TO PATIENT UPON DISCHARGE.
== END 2017-06-12 19:20 | DRG 885 ==
LOC: GPS 08:58
PROVIDERS: ADMIT Psychiatry & Neurology Psychiatry; ATTEND Psychiatry & Neurology Psychiatry
DX: F25.9 Schizoaffective disorder, unspecified (principal); F03.90 Unspecified dementia, unspecified severity, without behavioral disturbance, psychotic disturbance, mood disturbance, and anxiety; I34.1 Nonrheumatic mitral (valve) prolapse; E78.5 Hyperlipidemia, unspecified; I10 Essential (primary) hypertension; F29 Unspecified psychosis not due to a substance or known physiological condition; F41.9 Anxiety disorder, unspecified; R07.89 Other chest pain; K59.00 Constipation, unspecified; Z79.899 Other long term (current) drug therapy; K21.9 Gastro-esophageal reflux disease without esophagitis
CPT/HCPCS: 36415; 80053-TC; 80061-TC; 87081-TC